=== PATIENT | female | born 1965 ===

== ENCOUNTER 2025-03-23 10:00 | Day surgery (SDC) | payer OTHER ==
[~2025-03-23 10:00] MED LIST: CARVEDILOL6.25 MG; HYDRALAZINE HCL25 MG PO; HYDROCHLOROTH12.5 M2 PO; LYRICA20 MG/1 ML PO; PRINIVIL5 MG; RESTORIL30 M1 PO; ROSUVASTATIN CA20 MG PO; ZESTRIL20 MG PO
[2025-03-23] MEDS ORDERED: CLINDAMYCIN PHOSPHATE 150 MG/ML (900mg) ONE (12:02)
[2025-03-23] MEDS ORDERED: LIDOCAINE HCL 1% 20 ML VIAL IJ ONE (13:17)
[2025-03-23] MEDS ORDERED: BUPIVACAINE HCL/Mpf 0.5% 10ML VIAL ONE (13:17)
[2025-03-23] MEDS ORDERED: TRIAMCINOLONE ACETONIDE 40 MG/ML VIAL ONE (13:26)
== END 2025-03-23 16:35 | disposition home or self-care (01) ==
LOC: CIR.AMB 10:00
PROVIDERS: ATTEND Surgery Surgery of the Hand
DX: M65.841 Other synovitis and tenosynovitis, right hand (principal)